=== PATIENT | male | born 1995 | race Caucasian/White ===

== ENCOUNTER 2016-12-06 23:05 | Emergency (ER) | payer SELFPAY | END 2016-12-07 00:08 | disposition home or self-care (01) | LOC: ER 23:05 | DX: S89.91XA Unspecified injury of right lower leg, initial encounter (principal); W22.8XXA Striking against or struck by other objects, initial encounter; Z88.0 Allergy status to penicillin ==

== ENCOUNTER 2017-01-10 17:28 | Emergency (ER) | payer SELFPAY | END 2017-01-10 18:35 | disposition home or self-care (01) | LOC: ER 17:28 | DX: Z01.89 Encounter for other specified special examinations (principal); J45.909 Unspecified asthma, uncomplicated; F31.9 Bipolar disorder, unspecified; Z88.0 Allergy status to penicillin ==